=== PATIENT | male | born 1960 | race Caucasian/White ===

== ENCOUNTER 2016-06-25 15:16 | Emergency (ER) | payer BC ==
[2016-06-25 15:49] VITALS: BP 128/80
--- NOTE | 2016-06-25 16:50 | UC ---
Throat Pain/Nasal Raegan HPI - HPI Summary HPI Summary: This is a 56 yo male with a h/o asthma who presents with c/o ST and congestion. He reports that the ST has been persistent for several weeks, but the congestion just started a few days ago. He reports orthodox/facial pain with a fullness in his ears without tinnitus or hearing loss. Denies fevers. No cough or SOB. He reports that he restarted his Advair a few weeks ago. He feels that his lung capacity has improved, but this timing seems to correspond to his onset of his sore throat. He reports that he washes his mouth after each dose. - History of Current Complaint Chief Complaint: UC Stated Complaint: SINUS PRESSURE - Allergies/Home Medications Allergies/Adverse Reactions: Allergies Allergy/AdvReac Type Severity Reaction Status Date / Time Lactose Intolerance Allergy Intermediate GI Upset Verified 06/25/16 15:41 Neosporin Oint Allergy Intermediate Rash Uncoded 06/25/16 15:41 Home Medications: Home Medications Fluticasone-Salmeterol 100-50* [Advair Diskus 100-50*] 1 puff DAILY 06/25/16 [ History Confirmed 06/25/16] PMH/Surg Hx/FS Hx/Imm Hx Endocrine History Of: Denies: Diabetes, Thyroid Disease Cardiovascular History Of: Denies: Cardiac Disorders, Hypertension, Pacemaker/ICD Respiratory History Of: Reports: Asthma Denies: COPD GI/ History Of: Denies: Ulcer - Surgical History Surgical History: Yes Surgery Procedure, Year, and Place: Right eye plastic surgery after accident( NOT IN ORBIT/BELOW THE YE REPAIR) 1979 & 1989, bilateral inguinal hernias at age 7 - Family History Known Family History: Positive: Hypertension, Other - father has a h/o CRC - Social History Alcohol Use: Rare Substance Use Type: None Smoking Status (MU): Never Smoked Tobacco Have You Smoked in the Last Year: No Review of Systems Constitutional: Negative Skin: Negative Eyes: Negative ENT: Sore Throat, Nasal Discharge Respiratory: Negative Cardiovascular: Negative Gastrointestinal: Negative Genitourinary: Negative Motor: Negative Neurovascular: Negative Musculoskeletal: Negative Neurological: Negative Psychological: Negative All Other Systems Reviewed And Are Negative: Yes Physical Exam Triage Information Reviewed: Yes Appearance: Well-Appearing Vital Signs: Initial Vital Signs Temp 98.7 F 06/25/16 15:43 Pulse 72 06/25/16 15:43 Resp 18 01/16/17 15:43 BP 128/80 06/25/16 15:43 Pulse Ox 99 06/25/16 15:43 Vital Signs Reviewed: Yes ENT: Positive: Hearing grossly normal, Pharynx normal, Nasal congestion, TMs normal. Negative: Pharyngeal erythema, Tonsillar swelling, Tonsillar exudate Neck: Positive: Supple, Nontender, No Lymphadenopathy Respiratory: Positive: Lungs clear, Normal breath sounds. Negative: Crackles, Rhonchi, Wheezing Cardiovascular: Positive: RRR, No Murmur Abdomen Description: Positive: Nontender Throat Pain/Nasal Course/Dx - Course Course Of Treatment: Patient's complaints of ST and congestion are likely unrelated. Suspect that his ST may be d/t his Advair, he may have a candidal pharyngitis that isn't clearly visible. Offered empiric treatment and/or referral to ENT, but he declined both. Regarding his congestion, symptoms seem viral. Recommended use of OTC decongestants. - Differential Dx/Diagnosis Provider Diagnoses: 1. Sore throat - possible candidal pharyngitis. 2. Viral sinusitis Discharge - Discharge Plan Condition: Stable Disposition: HOME Patient Education Materials: Rhinosinusitis (ED) Referrals: Sera Wilson MD [Primary Care Provider] - If Needed Additional Instructions: Activity: As tolerated Instructions: 1. Use decongestants to help with your sinus pain/pressure (Afrin is an effective nasal spray, and Benadryl can be used at night), non-drowsy antihistamines (ie. Claritin, Palma, etc) can been effective for daytime relief 2. In regards to the sore throat, this may be related to your Advair, if it persists, follow up with your PCP or request a referral to a ENT for further evaluation. Be sure you wash your mouth out after each use.
== END 2016-06-25 16:44 | disposition home or self-care (01) ==
LOC: UCEAST 15:16
DX: J02.9 Acute pharyngitis, unspecified (principal); J32.8 Other chronic sinusitis
CPT/HCPCS: 99211; G0463

== ENCOUNTER 2017-05-06 15:29 | Emergency (ER) | payer BC ==
[2017-05-06 15:39] VITALS: BP 119/72
--- NOTE | 2017-05-06 15:57 | UC ---
Throat Pain/Nasal Reagan HPI - HPI Summary HPI Summary: 57M presents with sinus congestion for a week. He states he had a dry cough and some sinus congestion but that has gotten worst. He states that he has asthma and forgot to take his advair for this week. For the past two days the sinus congestion has increase. He denies any fever. He states that has post nasal drip. sinus discharge is yellow. no abdominal pain. states has asthma chest tightness. sometimes has productive cough. <Cecilia Jordan - Last Filed: 05/06/17 16:01> <Suzie Hernández - Last Filed: 05/06/17 16:08> - History of Current Complaint Chief Complaint: UCRespiratory Stated Complaint: SINUS COMPLAINT Time Seen by Provider: 05/06/17 15:43 - Allergies/Home Medications Allergies/Adverse Reactions: Allergies Allergy/AdvReac Type Severity Reaction Status Date / Time Lactose Intolerance Allergy Intermediate GI Upset Verified 06/25/16 15:41 Neosporin Oint Allergy Intermediate Rash Uncoded 06/25/16 15:41 PMH/Surg Hx/FS Hx/Imm Hx Endocrine History: Other Other Endocrine History: no DM Respiratory History: Asthma - Surgical History Surgical History: Yes Surgery Procedure, Year, and Place: Right eye plastic surgery after accident( NOT IN ORBIT/BELOW THE YE REPAIR) 1979 & 1989, bilateral inguinal hernias at age 7 - Family History Known Family History: Positive: Hypertension, Other - father has a h/o CRC - Social History Alcohol Use: Rare Substance Use Type: None Smoking Status (MU): Never Smoked Tobacco Have You Smoked in the Last Year: No <Cecilia Jordan - Last Filed: 05/06/17 16:01> Review of Systems Constitutional: Negative ENT: Sinus Pain/Tenderness Respiratory: Cough All Other Systems Reviewed And Are Negative: Yes <Cecilia Jordan - Last Filed: 05/06/17 16:01> Physical Exam Triage Information Reviewed: Yes Appearance: Well-Appearing Vital Signs: Initial Vital Signs Temp 98.9 F 05/06/17 15:35 Pulse 64 05/06/17 15:35 Resp 18 05/06/17 15:35 BP 119/72 05/06/17 15:35 Pulse Ox 99 05/06/17 15:35 Eyes: Positive: Conjunctiva Clear ENT: Positive: Pharynx normal, Nasal congestion, TMs normal, Sinus tenderness Neck: Positive: Supple, Nontender, No Lymphadenopathy Respiratory: Positive: Lungs clear, Normal breath sounds Cardiovascular: Positive: RRR Abdomen Description: Positive: Nontender, Soft Bowel Sounds: Positive: Present Musculoskeletal Exam: Normal Neurological Exam: Normal Psychological Exam: Normal Skin Exam: Normal <Cecilia Jordan - Last Filed: 05/06/17 16:01> Vital Signs: Initial Vital Signs Temp 98.9 F 05/06/17 15:35 Pulse 64 05/06/17 15:35 Resp 18 05/06/17 15:35 BP 119/72 05/06/17 15:35 Pulse Ox 99 05/06/17 15:35 <Suzie Hernández - Last Filed: 05/06/17 16:08> Throat Pain/Nasal Course/Dx - Course Course Of Treatment: 57M presents with sinus congestion for a week. He states he had a dry cough and some sinus congestion but that has gotten worst. He states that he has asthma and forgot to take his advair for this week. For the past two days the sinus congestion has increase. He denies any fever. He states that has post nasal drip. sinus discharge is yellow. no abdominal pain. states has asthma chest tightness. sometimes has productive cough. on exam has sinus tenderness. lungs CTA. discussed needs to take advair with symptoms. will treat for sinus infection with augmentin and flonase. medications reviewed. patient understand and agrees with plan. - Differential Dx/Diagnosis Differential Diagnosis/HQI/PQRI: Sinusitis, URI, Other - pneumonia Provider Diagnoses: sinsuitis <Cecilia Jordan - Last Filed: 05/06/17 16:01> Discharge <Cecilia Jordan - Last Filed: 05/06/17 16:01> <Suzie Hernández - Last Filed: 05/06/17 16:08> - Discharge Plan Condition: Good Disposition: HOME Prescriptions: Amoxicillin/Clavulanate TAB* [Augmentin TAB 875*] 875 mg PO BID #20 tab Fluticasone NASAL SPRAY 50MCG* [Flonase NASAL SPRAY 50MCG*] 2 spray BOTH NARES DAILY #1 btl Patient Education Materials: Sinusitis (ED) Referrals: Sera Wilson MD [Primary Care Provider] - Additional Instructions: Take antibiotic twice a day for 10 days Use intranasal steroid one spray each nostril twice a day Use saline spray in nose as much as needed Use humidifier in room or can use warm water in bowls for cough Use OTC decongestions as needed Follow up with primary care physician within a week for no improvement Return to ED with any new or worsening symptoms Attestation Statement User Type: Provider - I was available for consult. This patient was seen by the LOR. The patient was not presented to, seen by, or examined by me. -Cameron <Suzie Hernández - Last Filed: 05/06/17 16:08>
== END 2017-05-06 16:08 | disposition home or self-care (01) ==
LOC: UCEAST 15:29
DX: J32.9 Chronic sinusitis, unspecified (principal)
CPT/HCPCS: 99212; G0463

== ENCOUNTER 2017-12-30 16:11 | Emergency (ER) | payer BC ==
[2017-12-30 16:35] VITALS: BP 117/84
--- NOTE | 2017-12-30 16:53 | UC ---
Throat Pain/Nasal Reagan HPI - HPI Summary HPI Summary: 57 y/o male presents to the urgent care c/o nasal congestion w/ green nasal discharge and foul taste for the past week. Pt reports Hx of sinusitis and he needs ABs when he starts getting the foul taste. Pt states sinus pain and CRAWFORD is 4/10. He took Motrin 600mg PO this morning to alleviate symptoms. He used her 's Flonase this morning. he is having a lot of PND. Pt denies fever, SOb, chest pain, abdominal pain, N/V/D - History of Current Complaint Chief Complaint: UCRespiratory Stated Complaint: SINUS CONGESTION Time Seen by Provider: 12/30/17 16:52 Hx Obtained From: Patient Onset/Duration: Gradual Onset, Lasting Weeks - 1 week, Still Present Severity: Moderate Pain Intensity: 3 Pain Scale Used: 0-10 Numeric Cough: None Associated Signs & Symptoms: Positive: Sinus Discomfort, Nasal Discharge. Negative: Wheezing, Fever Related History: Seasonal Allergies - Epiglottits Risk Factors Epiglottis Risk Factors: Negative - Allergies/Home Medications Allergies/Adverse Reactions: Allergies Allergy/AdvReac Type Severity Reaction Status Date / Time lactose Allergy GI Upset Verified 12/30/17 16:36 Neosporin Oint Allergy Intermediate Rash Uncoded 12/30/17 16:36 PMH/Surg Hx/FS Hx/Imm Hx Previously Healthy: Yes Other Endocrine History: Vitamin D defficiency Other Respiratory History: recurrent sinusitis Psychological History: Anxiety - Surgical History Surgical History: Yes Surgery Procedure, Year, and Place: Right eye plastic surgery after accident( NOT IN ORBIT/BELOW THE YE REPAIR) 1979 & 1989, bilateral inguinal hernias at age 7 - Family History Known Family History: Positive: Hypertension, Diabetes Family History: father has a h/o CRC - Social History Occupation: Employed Full-time Lives: With Family Alcohol Use: Rare Substance Use Type: None Smoking Status (MU): Never Smoked Tobacco Have You Smoked in the Last Year: No Review of Systems Constitutional: Negative Skin: Negative Eyes: Negative ENT: Nasal Discharge, Sinus Congestion, Sinus Pain/Tenderness Respiratory: Negative Cardiovascular: Negative Gastrointestinal: Negative Genitourinary: Negative Motor: Negative Neurovascular: Negative Musculoskeletal: Negative Neurological: Headache Psychological: Negative Is Patient Immunocompromised?: No All Other Systems Reviewed And Are Negative: Yes Physical Exam - Summary Physical Exam Summary: Physical exam: Vitals: reviewed General: Well developed, well-nourished male patient with NAD. Head and face: Normocephalic and atraumatic, Positive tenderness over the frontal and maxillary sinuses.. Eyes: PERRLA, EOMI x 2. Normal conjunctiva. No eye discharge. ENT: Ears and TM with normal limits. Nose: edematous and erythematous nasal mucosa with with yellowish discharge and erythematous mucosa. Pharynx with erythema, no exudate. +PND yellowish Neck: Supple, no JVD, no carotid bruits and no lymphadenopathy. Lungs: clear, no rales, no rhonchi, no wheezes. CVS: RRR, S1 and S2 present no murmurs or gallops appreciated. Abdomen: soft nontender with positive bowel sounds. Extremities: no edema noted. Neuro: WNL. Skin: warm and dry Triage Information Reviewed: Yes Vital Signs: Initial Vital Signs Temp 99.1 F 12/30/17 16:32 Pulse 63 12/30/17 16:32 Resp 18 12/30/17 16:32 BP 117/84 12/30/17 16:32 Pulse Ox 100 12/30/17 16:32 Throat Pain/Nasal Course/Dx - Course Course Of Treatment: 57 y/o male presents to the urgent care c/o nasal congestion w/ green nasal discharge and foul taste for the past week. Pt reports Hx of sinusitis and he needs ABs when he starts getting the foul taste. Pt states sinus pain and CRAWFORD is 4/10. He took Motrin 600mg PO this morning to alleviate symptoms. He used her 's Flonase this morning. he is having a lot of PND. Pt denies fever, SOb, chest pain, abdominal pain, N/V/D. Hx obtained. Pt with 1 week of symptoms getting worse and Hx of chronic sinusitis. Pt Rx Augmentin PO and flonase nasal spray. Discharge instructions explained to Pt. Advised to Return to the clinic or PCP if symptoms do not improve.Pt understood and agreed with plan of care. - Differential Dx/Diagnosis Differential Diagnosis/HQI/PQRI: Laryngitis, Pharyngitis, Sinusitis, Tonsillitis , URI Provider Diagnoses: 1- acute bacterial sinusitis Discharge - Sign-Out/Discharge Documenting (check all that apply): Patient Departure - D/c home - Discharge Plan Condition: Stable Disposition: HOME Prescriptions: Amoxicillin/Clavulanate TAB* [Augmentin TAB 875*] 875 mg PO BID #20 tab Fluticasone NASAL SPRAY 50MCG* [Flonase NASAL SPRAY 50MCG*] 2 spray BOTH NARES DAILY #1 btl Patient Education Materials: Sinusitis (ED) Referrals: Sera Wilson MD [Primary Care Provider] - 1 Week Additional Instructions: 1- Please increase fluid intake and rest. take full course of antibiotic to avoid resistance 2-Use Flonase as directed to help drain fluid. Also buy saline drops to clear sinuses 3-Ibuprofen PO to alleviates sinus pain or headache 4-Return to the clinic or PCP if symptoms do not improve for further management and treatment - Billing Disposition and Condition Condition: STABLE Disposition: Home
== END 2017-12-30 17:20 | disposition home or self-care (01) ==
LOC: UCEAST 16:11
DX: J01.90 Acute sinusitis, unspecified (principal); B96.89 Other specified bacterial agents as the cause of diseases classified elsewhere
CPT/HCPCS: 99212; G0463

== ENCOUNTER 2019-08-04 13:55 | Emergency (ER) | payer BC ==
[2019-08-04 14:59] VITALS: BP 114/91
--- NOTE | 2019-08-04 15:38 | UC ---
UC General HPI - HPI Summary HPI Summary: PATIENT COMPLAINS OF ABOUT ONE WEEK OF RIGHT FACIAL PAIN THAT OCCASIONALLY RADIATES INTO HIS TEETH. WENT TO SEE HIS DENTIST AND WAS PRESCRIBED AMOXICILLIN FOR POTENTIAL INFECTION. NO X-RAYS TAKEN AT THE TIME. NO IMPROVEMENT IN SYMPTOMS. HE DENIES ANY URI SYMPTOMS. NO COUGH, CONGESTION, RUNNY NOSE. NO FEVER. - History of Current Complaint Chief Complaint: UCGeneralIllness Stated Complaint: SINUS ISSUE Time Seen by Provider: 08/04/19 15:21 Hx Obtained From: Patient Onset/Duration: Gradual Onset, Lasting Days, Still Present Timing: Constant Onset Severity: Moderate Current Severity: Moderate Pain Intensity: 5 Associated Signs & Symptoms: Negative: Cough, Headache - Allergy/Home Medications Allergies/Adverse Reactions: Allergies Allergy/AdvReac Type Severity Reaction Status Date / Time lactose Allergy GI Upset Verified 08/04/19 14:59 Neosporin Oint Allergy Intermediate Rash Uncoded 12/30/17 16:36 Home Medications: Home Medications Ibuprofen TAB* [Advil TAB*] 600 mg PO Q6HR 03/24/15 [History Confirmed 08/04/19] Omeprazole CAP (NF) [Prilosec CAP* 20 MG] 1 tab DAILY 09/16/15 [History Confirmed 08/04/19] Fluticasone-Salmeterol 100-50* [Advair Diskus 100-50*] 1 puff DAILY 06/25/16 [ History Confirmed 08/04/19] Amoxicillin/Clavulanate TAB* [Augmentin TAB 875*] 875 mg PO BID #20 tab [Rx Confirmed 08/04/19] Fluticasone NASAL SPRAY 50MCG* [Flonase NASAL SPRAY 50MCG*] 2 spray BOTH NARES DAILY #1 btl 12/30/17 [Rx Confirmed 08/04/19] Acetaminophen [Tylenol Extra Strength] 1,000 mg PO Q6HR 08/04/19 [History Confirmed 08/04/19] Cholecalciferol (Vitamin D3) [Vitamin D3] 1,000 mg PO DAILY 08/04/19 [History Confirmed 08/04/19] Cyclobenzaprine TAB* [Flexeril TAB*] 10 mg PO BID PRN #30 tab 08/04/19 [Rx] PMH/Surg Hx/FS Hx/Imm Hx Respiratory History: Asthma GI/ History: Gastroesophageal Reflux - Surgical History Surgical History: Yes Surgery Procedure, Year, and Place: Right eye plastic surgery after accident( NOT IN ORBIT/BELOW THE YE REPAIR) 1979 & 1989, bilateral inguinal hernias at age 7 - Family History Known Family History: Positive: Hypertension, Diabetes, Other - father has a h/ o CRC Family History: father has a h/o CRC - Social History Alcohol Use: Rare Substance Use Type: None Smoking Status (MU): Never Smoked Tobacco Have You Smoked in the Last Year: No Review of Systems All Other Systems Reviewed And Are Negative: Yes Constitutional: Positive: Negative Skin: Positive: Negative Respiratory: Positive: Negative Cardiovascular: Positive: Negative Gastrointestinal: Positive: Negative Musculoskeletal: Positive: Other: - jaw pain Neurological/Mental Status: Positive: Headache Physical Exam Triage Information Reviewed: Yes Appearance: Well-Appearing, No Pain Distress, Well-Nourished Vital Signs: Initial Vital Signs Temp 99 F 08/04/19 14:52 Pulse 59 08/04/19 14:52 Resp 16 08/04/19 14:52 BP 114/91 08/04/19 14:52 Pulse Ox 99 08/04/19 14:52 Vital Signs Reviewed: Yes Eyes: Positive: Conjunctiva Clear ENT: Positive: Hearing grossly normal, Pharynx normal, Sinus tenderness - RIGHT Dental: Negative: Percussion Tenderness @ Neck: Positive: Supple, Nontender, No Lymphadenopathy Respiratory Exam: Normal Cardiovascular Exam: Normal Abdomen Description: Positive: Soft Musculoskeletal: Positive: No Edema, Other: - TTP RIGHT TMJ Neurological: Positive: Alert Psychological: Positive: Age Appropriate Behavior Skin: Negative: Rashes Course/Dx - Course Course Of Treatment: PATIENT HAS HAD EXTENSIVE DENTAL WORK DONE HOWEVER CURRENTLY THERE IS NO SIGN OF DENTAL INFECTION. HE IS ALREADY ON ANTIBIOTICS SO WILL NOT CHANGE THIS. PRESENTATION NOT CONSISTENT WITH SINUSITIS. HE IS TENDER OVER HIS RIGHT TMJ AND THIS PAIN CAN OFTEN RADIATE. WILL TREAT FOR RIGHT TMJ AND HAVE PATIENT FOLLOW UP WITH HIS PCP. - Diagnoses Provider Diagnosis: Right temporomandibular joint disorder, unspecified Discharge ED - Sign-Out/Discharge Documenting (check all that apply): Patient Departure All imaging exams completed and their final reports reviewed: No Studies - Discharge Plan Condition: Stable Disposition: HOME Prescriptions: Cyclobenzaprine TAB* [Flexeril TAB*] 10 mg PO BID PRN #30 tab PRN Reason: Pain Patient Education Materials: Temporomandibular Disorder (ED) Referrals: Sera Wilson MD [Primary Care Provider] - 1 Week Additional Instructions: EXACT ETIOLOGY OF YOUR DISCOMFORT IS UNCLEAR HOWEVER MANY OF YOUR SYMPTOMS CAN BE EXPLAINED BY TMJ SO WILL TREAT SUCH FOR THE MOMENT. IF YOUR SYMPTOMS WORSEN OR CHANGE GO TO THE ER WITHOUT FAIL FOR FURTHER EVALUATION AND MANAGEMENT. What are temporomandibular joint disorders? Temporomandibular joint disorders are problems with the jaw joint and the muscles around it. The jaw joint, called the temporomandibular joint, is located in front of the ear where the jawbone connects to your head. To feel the joint, place your finger on your cheek just in front of your ear and then open and close your mouth. When doctors refer to temporomandibular joint disorders, they often call it TMJ , for short. TMJ can be caused by many problems, including arthritis. More often it is due to a combination of stress, jaw clenching, teeth grinding, and other things that strain the jaw joint and the muscles around it. What are the symptoms of TMJ? The main symptom of TMJ is a dull pain in the jaw muscles that doesnt go away. The pain is often on just one side of the face , near the ear. Sometimes the pain also affects the ear, jaw, or back of the neck. It is usually worse when chewing. Some people just have headaches with TMJ. Others might hear a clicking or popping sound or have a crunchy feeling in the joint when they open and close their mouth. The most common presenting signs and symptoms are: - Pain (96.1 percent) - Ear discomfort or dysfunction (82.4 percent) - Headache (79.3 percent) - TMJ discomfort or dysfunction (75.0 percent) Should I see a doctor or nurse? If the pain in your face or jaw is bothering you and does not go away, you should see your doctor or nurse. What tests might I need? There is no single test that can show if you have TMJ. Your doctor or nurse should be able to tell if you have TMJ by learning about your symptoms and doing an exam. Unless the doctor finds something unusual in the exam, most patients will NOT need X-rays or an MRI (an imaging test that creates pictures of the inside of your body). How is TMJ treated? No single treatment for TMJ works for everyone. Most of the time, medicines and simple lifestyle changes can help. Most patients get better over time, even without treatment, so patience is important. Your doctor or nurse will help you find the right mix of treatments for you. He or she might refer you to a dentist who specializes in TMJ. Treatment options include: - Medicines to relieve pain and relax the muscles There are several types of medicines used to treat TMJ. These include nonsteroidal antiinflammatory drugs ( NSAIDs), muscle relaxants, and certain medicines used for depression. ( Medicines for depression can relieve pain even in people who are not depressed. ) Your doctor will decide which medicine or group of medicines is best for you. - Jaw exercises There are simple jaw exercises that seem to help some people. Ask your doctor to show you how to do them. - Bite plates/splints These are special devices that fit in your mouth and keep you from grinding your teeth at night. They are made out of either a hard or soft plastic and might be made specially to fit your mouth. If you have sleep apnea, be sure to tell your doctor as the bite plate or splint might make your sleep apnea worse. If these treatments dont help, your doctor might suggest that you see a specialist, such as an oral surgeon. The specialist might use medicines given by injection (shots) to treat the pain. It is rare that people need surgery for TMJ. Is there anything I can do on my own to feel better? Yes. You might feel better if you: - Avoid doing things that make the pain worse, such opening your mouth too wide. - Eat soft foods that dont require a lot of chewing. - Practice relaxing You can learn methods to relax your body, such as doing deep breathing exercises. Ask your doctor or nurse about these methods. Relaxing the mind can help with how the body feels pain. People can learn to quiet their pain or make it less bothersome. - Use ice packs to ease the pain Use a bag of ice, bag of frozen peas, or cold gel pack once every 2 hours, for 20 minutes each time. Put a towel or cloth between the ice and your skin. Do not put the ice directly on your skin. - Put heat on the painful area Wet a clean washcloth with warm water and put it on the area. When the washcloth cools, reheat it with warm water and put it back on. Repeat these steps for 10 to 15 minutes every few hours. - Avoid stimulants, such as coffee, tea, maryuri, or decongestant medicines, since these can make your anxiety worse. TMJ SPECIALIST DR. MERCEDEZ LLOYD, DDS [address] [place] [address] - Billing Disposition and Condition Condition: STABLE Disposition: Home
== END 2019-08-04 16:02 | disposition home or self-care (01) ==
LOC: UCEAST 13:55
DX: M26.601 Right temporomandibular joint disorder, unspecified (principal); R68.84 Jaw pain; J45.909 Unspecified asthma, uncomplicated; K21.9 Gastro-esophageal reflux disease without esophagitis; Z79.899 Other long term (current) drug therapy; Z91.011 Allergy to milk products; Z91.09 Other allergy status, other than to drugs and biological substances
CPT/HCPCS: 99212; G0463